=== PATIENT | female | born 1945 ===

== ENCOUNTER 2016-07-16 06:57 | Day surgery (SDC) | payer MEDICARE ==
--- NOTE | 2016-07-16 09:21 | CP.SDSHP ---
Same Day Surgery H & P - History Proposed Procedure: Colonoscopy - Previous Medical/Surgical History Cardiac: Hypertension Endocrine/Metabolic: Thyroid Disease Comments: Arthritis, GERD Previous Surgical History: Cholecystectomy, C section - Allergies Allergies: Allergies aspirin Allergy (Verified 07/16/16 08:00) RASH - Current Medications Current Medications: See reconciliation sheet - Physical Exam General Appearance: WD WN female in NAD Vital Signs: Vital Signs 07/16/16 07:20 Temperature 99.1 F Pulse Rate 79 Respiratory 19 Rate Blood Pressure 161/78 H O2 Sat by Pulse 97 Oximetry Mental Status: Alert & Oriented x3 Neuro: WNL Heart: WNL Lungs: WNL GI: WNL - {Optional Preform as Required} Abdomen: WNL - Impression Impression: Lower GI bleeding Pt. Evaluated Today:Candidate for Anesthesia & Procedure: Yes - Date & Time Date: 07/16/16 Time: 09:21 Short Stay Discharge - Short Stay Discharge Admitting Diagnosis/Reason for Visit: CHANGE IN BOWEL HABITS Disposition: HOME/ ROUTINE
[2016-07-16] MEDS ORDERED: Propofol 10 mg/ml Inj (20 ML) ONE (09:24)
[2016-07-16] MEDS ORDERED: Esmolol 100 mg/10ml Inj IV ONE (09:38)
[2016-07-16] MEDS ORDERED: Phenylephrine 10 mg/ml Inj ONE (09:55)
[2016-07-16 10:17] VITALS: TEMP 98
[2016-07-16 11:02] VITALS: O2SAT 100
[2016-07-16 11:04] VITALS: BP 120/78; PULSE 60; RESP 18
== END 2016-07-16 11:45 | disposition home or self-care (01) ==
LOC: C.ENDO 06:57
PROVIDERS: ATTEND Internal Medicine Gastroenterology
DX: D12.5 Benign neoplasm of sigmoid colon (principal); K57.30 Diverticulosis of large intestine without perforation or abscess without bleeding; K64.0 First degree hemorrhoids
CPT/HCPCS: 45385; 88305; J2370; J2704

== ENCOUNTER 2017-06-24 06:42 | Day surgery (SDC) | payer MEDICARE ==
[2017-06-24] MEDS ORDERED: Phenylephrine 10 mg/ml Inj ONE (08:37)
--- NOTE | 2017-06-24 08:41 | CP.SDSHP ---
Same Day Surgery H & P - History Proposed Procedure: EGD Pre-Op Diagnosis: 71 year old woman with unexplained chest pain - Previous Medical/Surgical History Cardiac: Hypertension Endocrine/Metabolic: Thyroid Disease Previous Surgical History: cholecystectomy - Allergies Allergies: Allergies aspirin Allergy (Verified 06/24/17 07:10) RASH - Current Medications Current Medications: See reconciliation sheet - Physical Exam General Appearance: WD WN female in NAD Vital Signs: Vital Signs 06/24/17 07:00 Temperature 98.9 F Pulse Rate 67 Respiratory 19 Rate Blood Pressure 175/94 H O2 Sat by Pulse 97 Oximetry Mental Status: Alert & Oriented x3 Neuro: WNL Heart: WNL Lungs: WNL GI: WNL - {Optional Preform as Required} Abdomen: WNL - Impression Impression: unexplained chest pain Pt. Evaluated Today:Candidate for Anesthesia & Procedure: Yes - Date & Time Date: 06/24/17 Time: 08:48 Short Stay Discharge - Short Stay Discharge Admitting Diagnosis/Reason for Visit: CHEST PAIN, UNSPECIFIED Disposition: HOME/ ROUTINE
[2017-06-24] MEDS ORDERED: Propofol 10 mg/ml Inj (20 ML) ONE (08:42)
[2017-06-24 09:58] VITALS: TEMP 96.9
[2017-06-24 09:59] VITALS: PULSE 64; O2SAT 100
[2017-06-24 10:27] VITALS: BP 127/83; RESP 18
== END 2017-06-24 10:25 | disposition home or self-care (01) ==
LOC: C.ENDO 06:42
PROVIDERS: ATTEND Internal Medicine Gastroenterology
DX: K22.2 Esophageal obstruction (principal); R07.9 Chest pain, unspecified; K44.9 Diaphragmatic hernia without obstruction or gangrene; K31.7 Polyp of stomach and duodenum; K29.50 Unspecified chronic gastritis without bleeding
CPT/HCPCS: 43239; 88305; J2001; J2370; J2704